=== PATIENT | female | born 1995 | race Caucasian/White ===

== ENCOUNTER 2019-09-17 16:06 | Emergency (ER) | payer OTHER, SELFPAY ==
[2019-09-17 16:18] VITALS: BP 101/67; PULSE 87; RESP 16; TEMP 36.8; O2SAT 100
--- NOTE | 2019-09-17 16:36 | ED.FEMALEGU ---
HPI - Female Genitourinary General Chief complaint: Urogenital-Female Stated complaint: pos yeast infection Time Seen by Provider: 09/17/19 16:36 Source: patient and RN notes reviewed Mode of arrival: ambulatory Limitations: no limitations History of Present Illness HPI Narrative: 24 year old female who presents to [facility] care with complaints of itchy whitish discharge vaginally for the past month. Patient states that she has used Monistat twice with short interval of improvement but then symptoms return. Patient denies any recent antibiotic use, states that she has had some IBS symptoms and is taking align probiotics Patient denies any possible STD exposure,no new partners, states that some vaginal burning especially with sex. Patient denies any pain or burning with urination, no frequency or urgency. MD elicited complaint: vaginal discharge and genital itching Onset (ago): month(s) (1) Location of symptoms: external genitalia and vaginal Severity: mild Female Urogenital Radiation: Non-Radiating Severity scale (1-10): 2 Quality of pain: burning Consistency: intermittent Vaginal discharge: white Vaginal bleeding: none Exacerbating factors: intercourse Associated symptoms: denies other symptoms Sexual activity: Yes Patient : No Date of Last Menstrual Period: 09/10/19 Related Data Home Medications Medication Instructions Recorded Confirmed levetiracetam 1,000 mg tablet 1,000 mg PO Q12H 12/20/18 09/17/19 escitalopram oxalate 10 mg tablet 5 mg PO DAILY tablet 03/31/19 09/17/19 norethindrone-e.estradiol-iron 1 tablet PO DAILY 09/17/19 09/17/19 [ ()] zonisamide 100 mg PO BID 09/17/19 09/17/19 Allergies Allergy/AdvReac Type Severity Reaction Status Date / Time celecoxib Allergy Mild unknown Verified 09/17/19 16:24 fosphenytoin Allergy Unknown Seizure Verified 09/17/19 16:24 Review of Systems Review of Systems: Narrative: CONSTITUTIONAL: Denies fever, chills, or sweats. EYES: Denies visual changes, redness, or discharge. ENT: Denies rhinorrhea, congestion, sore throat, or otalgia. CARDIOVASCULAR: Denies chest pain, palpitations, or edema. RESPIRATORY: Denies cough or dyspnea. GASTROINTESTINAL: Denies abdominal pain, nausea, vomiting, or diarrhea. GENITOURINARY: Denies dysuria or hematuria.reports burning and vaginal itchy with white discharge SKIN: Denies rash or itching. MUSCULOSKELETAL: Denies back pain, joint pain, or myalgia. NEUROLOGIC: Denies headache, numbness, or weakness. PSYCHIATRIC: Denies anxiety or depression. All systems reviewed & are unremarkable except as noted in HPI and below PMFSH Past Medical History Medical History Anxiety Seizure disorder Surgical History Surgical History History of tonsillectomy Social History Social History (Updated 09/17/19 @ 17:06 by Collette Clark NP) Smoking status: Never smoker Second hand tobacco smoke exposure: No Alcohol intake: current Gender identity (if verbalized by the patient): Female Comments At time of signature, agree with nursing past medical, surgical, social history. There is no relevant family history pertinent to the presenting complaint Exam Narrative: Exam Narrative: GENERAL: Well-appearing, well-nourished, and in no acute distress. HEAD: Normocephalic, atraumatic. EYES: PERRLA and EOMI. ENT: Nares clear, no rhinorrhea or epistaxis. Mucous membranes moist. NECK: Supple.no lymphadenopathy CHEST: Clear to auscultation. No respiratory distress.SAO2 100% on room air HEART: Regular rate and rhythm. No murmur heard. Normal peripheral pulses. ABDOMEN: Soft, nontender, nondistended, normal active bowel sounds.white discharge which is itchy vaginally. EXTREMITIES: Normal range of motion. No edema. SKIN: Warm, dry, no rash. NEURO: No focal deficits. Alert and oriented x3. Course Vital Signs Vital sign
== END 2019-09-17 16:59 | disposition home or self-care (01) ==
PROVIDERS: Emergency Provider Registered Nurse; PCP Family Medicine
DX: B37.3 Candidiasis of vulva and vagina (principal)
CPT/HCPCS: 99213; G0463

== ENCOUNTER 2021-03-24 15:25 | Emergency (ER) | payer OTHER, SELFPAY ==
--- NOTE | ~2021-03-24 | XR_ITS ---
EXAMINATION: XR abdomen/kub 1V DATE: 03/24/2021 15:55 INDICATION: Constipation. TECHNIQUE: A supine view of the abdomen on 2 radiographs was obtained. COMPARISON: CT abdomen and pelvis 09/23/2018 FINDINGS: There are no dilated loops of bowel. There is a large volume of stool in the colon. IMPRESSION: 1. Large volume of stool in the colon. Reviewed, dictated and finalized at location E. [facility]
--- NOTE | 2021-03-24 15:28 | ED.GENADULT ---
HPI - General Adult General Chief complaint: Nausea/Vomiting/Diarrhea Stated complaint: Constipation Time Seen by Provider: 03/24/21 15:40 Source: patient Mode of arrival: ambulatory Limitations: no limitations History of Present Illness HPI narrative: 25-year-old female presents with concern for constipation. She reports acute constipation for the past 3 weeks. Reports she has had approximately 1 bowel movement a week after she takes medications to promote a bowel movement. She reports her last bowel movement was 6 days ago. She denies abdominal pain, vomiting, diarrhea. She reports in the past she has had a history of constipation, she is never been evaluated by gastroenterology for constipation. Reports she takes Keppra for seizures, she has not recently had her Keppra levels checked. She denies any changes in medication or diet. MD complaint: Constipation Related Data Home Medications Medication Instructions Recorded Confirmed levetiracetam 1,000 mg tablet 1,000 mg PO Q12H 12/20/18 09/17/19 zonisamide 100 mg PO BID 09/17/19 09/17/19 Allergies Allergy/AdvReac Type Severity Reaction Status Date / Time celecoxib Allergy Mild unknown Verified 03/24/21 15:34 fosphenytoin Allergy Unknown Seizure Verified 03/24/21 15:34 Review of Systems Review of Systems: CONSTITUTIONAL: Denies malaise, chills, sweats, or fever. CARDIOVASCULAR: Denies chest pain, palpitations, or edema. RESPIRATORY: Denies cough or dyspnea. GASTROINTESTINAL: Denies abdominal pain, nausea, vomiting, diarrhea, bloody, or mucous stools. Reports constipation GENITOURINARY: Denies dysuria or hematuria. MUSCULOSKELETAL: Denies myalgia. All systems reviewed & are unremarkable except as noted in HPI and below PMFSH Past Medical History Medical History (Updated 03/24/21 @ 16:06 by Elena Stanton NP) Anxiety Seizure disorder Surgical History Surgical History History of tonsillectomy Social History Social History (Updated 09/17/19 @ 17:06 by Collette Clark NP) Smoking status: Never smoker Second hand tobacco smoke exposure: No Alcohol intake: current Gender identity (if verbalized by the patient): Female Comments At time of signature, agree with nursing past medical, surgical, social and family history. There is no relevant family history pertinent to the presenting complaint Exam Narrative: GENERAL: Well-appearing, well-nourished, and in no acute distress. HEAD: Normocephalic, atraumatic. EYES: PERRLA, conjunctivae clear, and EOMI. ENT: Nares clear. Mucous membranes moist. NECK: Supple. No lymphadenopathy CHEST: Speaks in full sentences. No respiratory distress. HEART: Regular rate and rhythm. ABDOMEN: Soft, flat, nondistended. No guarding, rebound tenderness, or rigid. No pulsatilla masses. Bowel sounds present in all four quadrants. No organomegaly. Negative Salazar?s sign. No periumbilical tenderness. No Supra public tenderness or distension. No scars or surface trauma. SKIN: Warm, dry, no rash. NEURO: Alert and oriented x3. PSYCH: Normal mood and affect Course Course Emergency Course: Patient is aware of diagnosis, understands and agrees to treatment plan. Anticipatory guidance given. Patient agrees to follow-up as directed and is aware of reasons to seek care at the emergency department. Portions of this record may have been created with voice recognition software Level of Care: Express Care Visit Vital Signs Vital signs: Reviewed. Medical Decision Making MDM Narrative Medical decision making narrative: Exam findings and imaging show no acute concerns or changes; patient is non-toxic appearing and is in no distress. Patient is appropriate for outpatient treatment and follow-up. Imaging Data My impression: Images reviewed, interpreted by radiologist, agree, see report. Radiologist's impression: EXAMINATION: XR abdomen/kub 1V DATE: 03/24/2021 15:55 IND
[2021-03-24 15:31] VITALS: BP 126/86; PULSE 93; RESP 12; TEMP 36.9; O2SAT 100
== END 2021-03-24 16:10 | disposition home or self-care (01) ==
PROVIDERS: Emergency Provider Nurse Practitioner; PCP Internal Medicine
DX: K59.00 Constipation, unspecified (principal); G40.909 Epilepsy, unspecified, not intractable, without status epilepticus
CPT/HCPCS: 74018; 99213; G0463

== ENCOUNTER 2021-06-02 12:14 | Emergency (ER) | payer OTHER, SELFPAY ==
--- NOTE | 2021-06-02 12:18 | ED.URI ---
HPI - URI/Sore Throat General Chief Complaint: Upper Respiratory Infection Stated Complaint: Sinus pain Time Seen by Provider: 06/02/21 12:18 Source: patient, family and RN notes reviewed History of Present Illness HPI Narrative: Patient is a 26-year-old female who presents the urgent care with complaints of a sinus infection. Patient states that she has a lot of sinus pressure, nasal congestion and postnasal drainage. Patient states that it clears up during the day with Aleve-D but she is having coughing fits at night that are keeping her up at night. Patient has not taken anything prior to bedtime. Denies of any recent contacts to illness. Denies of any fever, chills, nausea, vomiting, shortness of breath. No other acute complaints. No acute distress noted. Patient aware of the plan of care. Some parts of this dictation were generated by voice recognition software and may contain typographical and/or grammatical inaccuracies. Related Data Home Medications Medication Instructions Recorded Confirmed levetiracetam 1,000 mg tablet 2,000 mg PO Q12H 12/20/18 06/02/21 zonisamide 100 mg PO BID 09/17/19 06/02/21 Allergies Allergy/AdvReac Type Severity Reaction Status Date / Time celecoxib Allergy Mild unknown Verified 06/02/21 12:23 fosphenytoin Allergy Unknown Seizure Verified 06/02/21 12:23 Review of Systems Review of Systems: CONSTITUTIONAL: Denies fever, chills, or sweats. EYES: Denies visual changes, redness, or discharge. ENT: Reports of postnasal drainage, nasal congestion and sinus pressure CARDIOVASCULAR: Denies chest pain, palpitations, or edema. RESPIRATORY: Reports of cough without wheezing or dyspnea GASTROINTESTINAL: Denies abdominal pain, nausea, vomiting, or diarrhea. GENITOURINARY: Denies dysuria or hematuria. SKIN: Denies rash or itching. MUSCULOSKELETAL: Denies back pain, joint pain, or myalgia. NEUROLOGIC: Denies headache, numbness, or weakness. All other systems reviewed are negative, except as documented in HPI. [facility] Past Medical History Medical History (Updated 06/02/21 @ 12:35 by GERHARD James) Anxiety Seizure disorder Surgical History Surgical History History of tonsillectomy Social History Social History (Updated 09/17/19 @ 17:06 by Collette Clark NP) Smoking status: Never smoker Second hand tobacco smoke exposure: No Alcohol intake: current Gender identity (if verbalized by the patient): Female Comments At the time of my signature, I reviewed and agree with the nursing past medical, surgical, social, and family history. There is no relevant family history pertinent to the patient complaint. Exam Narrative: GENERAL: This is a well-nourished, well-developed patient, in no apparent distress. HEAD: normocephalic, atraumatic. EYES: PERRL. Sclera clear/white. Vision is grossly intact. EARS: External ears normal, auditory canals clear and without drainage, TMs normal without perforation. Hearing grossly intact. NOSE: External nose normal with no obvious nasal discharge, nares without redness, no rhinorrhea. THROAT: Mucous membranes moist, posterior pharynx clear. Mild postnasal drainage NECK: Neck supple CARDIOVASCULAR: Regular rate and rhythm without murmurs, gallops, or rubs. RESPIRATORY: Clear to auscultation. Breath sounds equal bilaterally. No wheezes, rales, or rhonchi. SKIN: warm, intact with no suspicious lesions or rash, good texture and turgor. NEURO: awake, alert, and oriented to person, place and time. There were no obvious focal neurologic abnormalities. EXTREMITIES: No clubbing, cyanosis, or edema. Course Course Level of Care: Express Care Visit Vital Signs Vital signs: Vital Signs Temperature 98.4 F 06/02/21 12:25 Pulse Rate 84 06/02/21 12:25 Respiratory Rate 16 06/02/21 12:25 Blood Pressure 114/74 06/02/21 12:25 Pulse Oximetry 100 06/02/21 12:25 Temperature 98
[2021-06-02 12:25] VITALS: BP 114/74; PULSE 84; RESP 16; TEMP 36.9; O2SAT 100
== END 2021-06-02 12:40 | disposition home or self-care (01) ==
PROVIDERS: Emergency Provider Nurse Practitioner Family; PCP Internal Medicine
DX: J32.9 Chronic sinusitis, unspecified (principal); G40.909 Epilepsy, unspecified, not intractable, without status epilepticus
CPT/HCPCS: 99213; G0463